=== PATIENT | female | born 1975 | race Caucasian/White ===

== ENCOUNTER → 2018-04-09 15:26 | Outpatient (CLI) | payer MEDICAID, SELFPAY ==
--- NOTE | 2018-04-09 15:31 | RAD_ITS ---
STUDY: X-RAY - RIGHT WRIST REASON FOR EXAM: Female, 42 years old. Pain. TECHNIQUE: 3 view(s) of the wrist were obtained. COMPARISON: None. FINDINGS: Normal visualized distal radius and ulna. Normal radiocarpal articulation. Normal distal radioulnar articulation. Normal carpal bones. Normal carpal articulations. Normal carpometacarpal articulation of the thumb. Normal second through fifth carpometacarpal articulations. Normal visualized metacarpal bones. The soft tissue structures are unremarkable. RAD/Wrist min 3 Views IMPRESSION: Normal x-ray examination of the wrist. Electronically Signed: Nolan Antonio MD at 3:57 EST , Service support ,
== END ==
PROVIDERS: Family Provider Family Medicine; PCP Family Medicine; Referring Provider Family Medicine; Visit Provider Family Medicine
DX: M25.531 Pain in right wrist (principal)
CPT/HCPCS: 73110

== ENCOUNTER 2018-05-16 09:00 | Outpatient (RCR) | payer MEDICAID, SELFPAY ==
--- NOTE | 2018-04-24 08:54 | HP.OTEVAL ---
Patient's Visit Information ELISHA NOEL is a 43 year old F, referred to Occupational Therapy by Gianluca Larson MD, with a diagnosis of right wist pain. Date of Evaluation: 04/22/18 Occupational Therapist: Fior Blanchard, GELACIOR/Camryn, CHT - Subjective Subjective: This 43 year old female was seen for initial OT eval with dx of right wrist pain. Pt states since August- pt states pain cont. to get worse-most motions of ulnar deviation-as cutting food she gets sharp/buring pain up her ulnar side of wrist- pt states this is limiting her ind. with ADLs and IADls. pt would like to return to her PLOF. 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 - Pain right wrist 0 Pain Intensity Range: 0, 5, 6 - ROM Wrist: Right RD [address] 20 UD 30 Right wrist 65/70 left wrist 65/67 CMC: Right/Left WNL MP: Right/Left WNL IP: Right/Left WNL - Strength Hospitalist Nocturnist Physician: right 45# left 65# Lateral Pinch: right 16# left 18# Tripod Pinch: right 10# left 14# - Sensation Sensation Comments: denies - Special Tests Vega Scaphoid Shift: negative Pronation: negative Thumb/Index Pinch: negative - Quick DASH-Disab of Arm,Shoulder& Hand Quick DASH Score: 47.7250 - Goals Goal:: PT will demo an 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 Pt will demo an increase in lateral and tripod pinch by 2# to increase pts independent with opening baggies, containers at PLOF by D/C. Goal:: Pt will report pain no greater than 1/10 with use of affected hand with BADLs and IADLs by d/c. Goal:: Pt will demo understanding of joint protection and ergonomics when performing BADLs and IADLs by d/c. Pt will demo understanding of adaptive Equipment use to decrease stress on joints to allow pt to perform BADSL and IADLS at BRENDEN level. - Rehabilitation General Assessment: pt demo with ulnar side wrist pain- TFCC region- pain increases with ulnar dev, and forearm supination. The pain and weakness limits pts ind. with ADLs and IADLs at this time- pt would benefit from skilled OT services 1-2 x week for 4 weeks- Today pt ed. on mechanics of the wrist, ice and use of support to prevent ulnar dev. pt also ed in isometric ex of wrist flex/ext and rad. dev. pt demo understanding of HEP and agree to POC. Rehabilitation Potential: Good - Anticipated Interventions Anticipated Interventions: A/AAROM/PROM, Strengthening, Triggerpoint Release, Modalities, Orthoses, Joint Protection/Energy Conservation, Ergonomic Education - Visit Plan Frequency: 1-2x /Week Duration: 4 Weeks TEXT: Thank you for the opportunity to evaluate your patient. For Medicare and Medicare HMO plans, please review the plan of care and approve it. It will need to be FAXED BACK to us at [phone] for Medicare purposes. Please let me know if there are questions or concerns regarding this plan of care. Physician Signature: Date:
--- NOTE | 2018-05-16 09:33 | HP.OTDCSUM_ITS ---
HP - OT D/C Summary It has been my pleasure to treat ELISHA NOEL under orders from Gianluca Larson MD, for the diagnosis of right wist pain for a total of 6 visit(s). Please see the following information for a summary of their discharge status. 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 a right later pinch of 22# a increase from 16# and a 20# right tripod pinch a increase from 10#. right - Goals Patient Goals: Regain Strength, Decrease Pain, Use Hand/Wrist/Arm Normally Again Goal:: PT will demo an increase in ship construction teacher 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 Pt will demo an increase in lateral and tripod pinch by 2# to increase pts independent w ith opening baggies, containers at PLOF by D/C. Goal:: Pt will report pain no greater than 1/10 with use of affected hand with BADLs and IADLs by d/c. Goal:: Pt will demo understanding of joint protection and ergonomics when performing BADLs and IADLs by d/c. Pt will demo understanding of adaptive Equipment use to decrease stress on joints to allow pt to perform BADSL and IADLS at BRENDEN level. - Plan Plan: D/C with HEP - D/C Information Discharge Comments: pt was seen for 6 visits- she made good progress and has met goals in OT. pt was ed. on use of brace, ice and kineso tape as needed. pt reports she is ind. with all ADLs and IADLs pt also demo understanding of p rotective mellisa. to avoid stress to wrist. pt agree with POC and demo understanding. If there are questions or concerns regarding this patient's occupational therapy, please fell free to call me at [phone]. Thank you for the referral of this patient. Sincerely, Fior Blanchard, OTR/L, CHT
== END 2018-05-16 19:00 | disposition home or self-care (01) ==
LOC: OT 09:00
PROVIDERS: Family Provider Family Medicine; PCP Family Medicine; Referring Provider Family Medicine; Visit Provider Family Medicine
DX: M25.539 Pain in unspecified wrist (principal)
CPT/HCPCS: 97035; 97110; 97140; 97166; 97530; 97760

== ENCOUNTER 2020-05-27 10:38 | Outpatient (RCR) | payer MEDICAID, SELFPAY | END 2020-07-20 23:59 | LOC: IMMUN 10:38 | PROVIDERS: PCP Family Medicine; Referring Provider Family Medicine; Visit Provider Family Medicine | DX: Z23 Encounter for immunization (principal) | CPT/HCPCS: 0001A; 0002A; 91300 ==

== ENCOUNTER → 2020-11-09 | Outpatient (CLI) | payer MEDICAID, SELFPAY ==
[2020-11-12 13:39] LABS: HPV APTIMA, High Risk Negative (Negative)
== END | disposition home or self-care (01) ==
LOC: LABSPEC 13:32
PROVIDERS: PCP Family Medicine; Visit Provider Obstetrics & Gynecology
DX: Z12.4 Encounter for screening for malignant neoplasm of cervix (principal)
CPT/HCPCS: 87624; 88175; G0145